=== PATIENT | female | born 1950 | race Caucasian/White ===

== ENCOUNTER → 2023-12-03 06:26 | Day surgery (SDC) | payer MEDICARE, SELFPAY ==
[2023-12-03 09:54] LABS: Glucose - Point of Care 177 mg/dl (70-99)
== END ==
LOC: GI 06:26
PROVIDERS: ATTENDING PHYSICIAN Specialist
DX: Z12.11 Encounter for screening for malignant neoplasm of colon (principal); Z86.010 Personal history of colon polyps; K57.30 Diverticulosis of large intestine without perforation or abscess without bleeding; D12.5 Benign neoplasm of sigmoid colon; R13.10 Dysphagia, unspecified; K20.90 Esophagitis, unspecified without bleeding
CPT/HCPCS: 45385; 43239; 88305; 82962